=== PATIENT | female | born 1970 | race Caucasian/White ===

== ENCOUNTER 2020-07-09 08:54 | Day surgery (SDC) | payer MEDICAID ==
[~2020-07-09] VITALS: Ht 162.6 cm; Wt 76.5 kg
[2020-07-09] MEDS ORDERED: normal saline 1000ml 1,000 ML IV PRN (09:20)
[2020-07-09] MEDS ORDERED: albumin 25% 100mL bottle x 1 IV PRN (09:20)
[2020-07-09 09:21] VITALS: BP 145/56
[2020-07-09] MEDS ORDERED: NICO-631 TD (09:32)
[2020-07-09] MEDS ORDERED: PHEN177S35 PO (09:32)
[2020-07-09] MEDS ORDERED: GUAI200T5 PO (09:32)
[2020-07-09] MEDS ORDERED: EUCA1LOZ37 PO (09:32)
[2020-07-09] MEDS ORDERED: ACET-1008 PO (09:32)
--- NOTE | 2020-07-09 11:00 | NUR ---
Patient did not have enough fluid to right lung to do thoracentesis. Will continue to monitor.
[2020-07-09] MEDS ORDERED: LIDOcaine 1%/PF 5ML 10 MG/ML VIAL ONE (11:46)
[2020-07-09] MEDS ORDERED: fentaNYL/PF 50MCG/1 ML 2ML syringe ONE (11:48)
[2020-07-09] MEDS ORDERED: heparin sodium, porcine/PF 100unit/ml 5ML syringe ONE (12:00)
[2020-07-09 12:34] VITALS: BP 143/84
[2020-07-09 12:45] VITALS: BP 136/88
[2020-07-09 13:00] VITALS: BP 126/74
[2020-07-09 13:15] VITALS: BP 122/73
[2020-07-09 13:22] VITALS: BP 113/68
== END 2020-07-09 13:36 | disposition home or self-care (01) ==
LOC: SSTAY O 08:54
PROVIDERS: ATTEND Radiology Vascular & Interventional Radiology
DX: C34.01 Malignant neoplasm of right main bronchus (principal); J90 Pleural effusion, not elsewhere classified; F32.9 Major depressive disorder, single episode, unspecified; Z87.891 Personal history of nicotine dependence; Z79.899 Other long term (current) drug therapy; Z98.890 Other specified postprocedural states
CPT/HCPCS: 36561; 76604; 76937; 77001; 77012; C1769; C1788; C1894; J1642; J3010; J7030; A6213